=== PATIENT | female | born 1995 | race Caucasian/White ===

== ENCOUNTER 2018-07-19 19:39 | Emergency (ER) | payer SELFPAY ==
--- NOTE | 2018-07-19 19:51 | EDM.PDOC ---
ED HPI GENERAL MEDICAL PROBLEM - General Chief Complaint: ENT Problem Stated Complaint: TOOTH PAIN Time Seen by Provider: 07/19/18 19:46 Source of Information: Reports: Patient, RN, RN Notes Reviewed History Limitations: Reports: No Limitations - History of Present Illness INITIAL COMMENTS - FREE TEXT/NARRATIVE: Patient presents to the ED at [facility] for the evaluation of worsening dental pain. Patient states her pain started about 2 years ago, but over the last 2-3 days has progressively gotten worse. She states she thinks her "wisdom teeth are coming in." Her pain is throughout the entire mouth/jaw, but mostly along the left lower jawline extending into the left ear. She is able to eat and drink normally. Denies any fever or chills. No facial/jaw swelling. No throat swelling. Denies any airway problems. - Related Data Allergies Allergy/AdvReac Type Severity Reaction Status Date / Time No Known Drug Allergies Allergy Cannot Verified 07/19/18 19:48 Remember Home Meds: Home Meds Clindamycin HCl 300 mg PO TID 10 Days #30 capsule 07/19/18 [Rx] Past Medical History - Past Health History Medical/Surgical History: Denies Medical/Surgical History ED ROS ENT - Review of Systems Review Of Systems: See Below Constitutional: Denies: Fever, Chills HEENT: Reports: Dental Pain, Ear Pain Respiratory: Denies: Shortness of Breath, Cough Cardiovascular: Denies: Chest Pain, Palpitations Skin: Reports: No Symptoms Neurological: Reports: No Symptoms ED EXAM, ENT - Physical Exam Exam: See Below Exam Limited By: No Limitations General Appearance: Alert, No Apparent Distress Ears: Normal External Exam, Normal Canal, Normal TMs Mouth/Throat: Dental Abcess (considered), Dental Pain, Dental Tenderness, Dry Mucous Membrane. No: Dental Trauma Neck: Supple Respiratory/Chest: No Respiratory Distress, Lungs Clear, Normal Breath Sounds Cardiovascular: Normal Peripheral Pulses, Regular Rate, Rhythm Neurological: Alert, Oriented Skin: Warm, Dry, Intact, Normal Color Departure - Departure Time of Disposition: 19:50 Disposition: Home, Self-Care 01 Condition: Good Clinical Impression: Chronic dental pain, Dental abscess - Discharge Information *PRESCRIPTION DRUG MONITORING PROGRAM REVIEWED*: Not Applicable *COPY OF PRESCRIPTION DRUG MONITORING REPORT IN PATIENT RENATO: Not Applicable Prescriptions: Clindamycin HCl 300 mg PO TID 10 Days #30 capsule Instructions: Dental Abscess, Benzocaine mouth gel, ointment, solution, or dental paste Referrals: Peace Bullard MD [Primary Care Provider] - Forms: ED Department Discharge Additional Instructions: 1. STAY WELL HYDRATED AND REST 2. TYLENOL/ADVIL ONLY FOR PAIN DUE TO 3. TRY USING ORAGEL TOPICALLY 4. WARM SALT WATER GARGLES 5. SEE DENTIST APPLE 6. FOLLOW UP WITH DR. BULLARD SYMPTOMS WARRANT - Problem List Review Problem List Initiated/Reviewed/Updated: Yes - Assessment/Plan Assessment:: Dental Pain Consider dental abscess 2/2 worsening pain and percussion sensitivity Plan: SEE DISCHARGE ORDERS
[2018-07-19] MEDS ORDERED: Take Home: Clindamycin HCl 150 MG Cap, 6 Cap Pack PO ONE (19:53)
== END 2018-07-19 20:05 | disposition home or self-care (01) ==
LOC: VM.ED 19:39
DX: K04.7 Periapical abscess without sinus (principal)
CPT/HCPCS: 99282; 99282-GF; A9270-GY